=== PATIENT | male | born 1960 | race Hispanic/Latino ===

== ENCOUNTER 2020-03-22 05:33 | Emergency (ER) | payer MEDICAID ==
[~2020-03-22 05:33] MED LIST: JANUMET 50/500; LASIX PO
== END 2020-03-22 06:21 | disposition home or self-care (01) ==
LOC: EDH 05:33
DX: L03.012 Cellulitis of left finger (principal); E11.9 Type 2 diabetes mellitus without complications

== ENCOUNTER 2020-10-14 14:18 | Observation (INO) | payer MEDICAID ==
[~2020-10-14] VITALS: Ht 170.2 cm; Wt 141.2 kg
[2020-10-14 14:48] LABS: APPEARANCE,URINE Clear (CLEAR); BILIRUBIN,URINE Negative (NEGATIVE); COLOR,URINE Yellow (YELLOW); GLUCOSE, URINE (UA) Negative (NEGATIVE); KETONES,URINE Negative (NEGATIVE); LEUKOCYTE ESTERASE ,URINE Negative (NEGATIVE); NITRATE,URINE Negative (NEGATIVE); OCCULT BLOOD,URINE Negative (NEGATIVE); PROTEIN,URINE Negative (NEGATIVE); UROBILINOGEN,URINE 0.2 mg/dL (0.2-1.0)
[2020-10-14 14:56] LABS: AMPHET/METH SCREEN,URINE NEGATIVE (NEGATIVE); BARBITURATE SCREEN, URINE NEGATIVE (NEGATIVE); BENZODIAZEPINES SCREEN,URINE NEGATIVE (NEGATIVE); CANNABINOID SCREEN,URINE NEGATIVE (NEGATIVE); COCAINE SCREEN,URINE NEGATIVE (NEGATIVE); OPIATE SCREEN,URINE NEGATIVE (NEGATIVE); PHENCYCLIDINE SCREEN,URINE NEGATIVE (NEGATIVE)
[2020-10-14 15:10] LABS: BASOPHILS % (AUTO) 0.4 % (0.0-5.0); HEMATOCRIT 46.8 % (42-54); LYMPHOCYTES % (AUTO) 21.6 % (21.0-51.0); MEAN CORPUSCULAR HEMOGLOBIN 28.3 pg (27.0-33.0); MEAN CORPUSCULAR HGB CONC 33.1 g/dL (32.0-36.0); MEAN CORPUSCULAR VOLUME 85.6 fL (79-99); MONOCYTES % (AUTO) 9.2 % (3.0-13.0); NEUTROPHILS % (AUTO) 66.6 % (40.0-77.0); PLATELET COUNT (AUTO) 253 K/uL (130-400); RED BLOOD CELL COUNT(AUTO) 5.47 MIL/uL (4.50-6.20); RED CELL DISTRIBUTION WIDTH 12.9 % (11.0-15.5); WHITE BLOOD COUNT (AUTO) 9.2 K/uL (4.8-10.8)
[2020-10-14 15:23] LABS: CREATININE 0.8 mg/dL (0.5-1.5); POTASSIUM 4.2 mmol/L (3.5-5.1)
[2020-10-14 15:26] LABS: B-TYPE NATRIURETIC PEPTIDE 46 pg/mL (0-100)
[2020-10-14 15:28] LABS: ALBUMIN 3.6 g/dL (3.5-5.0); BILIRUBIN,TOTAL 0.4 mg/dL (0.2-1.0); TOTAL PROTEIN, SERUM 7.9 g/dL (6.0-8.3)
[2020-10-14 15:30] LABS: INR 1.04 (0.85-1.15); PROTHROMBIN TIME 11.1 SEC (9.6-11.6)
[2020-10-14 15:31] LABS: PARTIAL THROMBOPLASTIN TIME 26.6 SEC (26.3-35.5)
[2020-10-14] MEDS ORDERED: IOHEXOL-350 75 ML VIAL IV ONE ×2 (16:01→16:41)
[2020-10-14] MEDS ORDERED: LOPERAMIDE HCL 2 MG CAP PO PRN (16:45)
[2020-10-14] MEDS ORDERED: DOCUSATE SODIUM 100 MG CAP PO PRN (16:45)
[2020-10-14] MEDS ORDERED: HYDRALAZINE HCL 20 MG/ML VIAL IV PRN (16:45)
[2020-10-14] MEDS ORDERED: ONDANSETRON HCL 4 MG/2 ML VIAL IVP PRN (16:45)
[2020-10-14] MEDS ORDERED: ACETAMINOPHEN 325 MG TAB PO PRN (16:45)
[2020-10-14] MEDS ORDERED: MAGNESIUM 2GM PREMIX 50ML 50 ML IV PRN ×2 (16:45→17:00)
[2020-10-14] MEDS ORDERED: POTASSIUM CHLORIDE 10% ELIXIR 20 MEQ/15 ML UDCUP PO PRN (16:45)
[2020-10-14] MEDS ORDERED: GLUCAGON 1MG KIT 1 MG ML IM PRN (17:00)
[2020-10-14] MEDS ORDERED: LIDOCAINE HCL-MPF 1% 2ML VIAL IV PRN (17:00)
[2020-10-14] MEDS ORDERED: POTASSIUM CHLORIDE 20MEQ/100ML 100 ML IV PRN (17:00)
[2020-10-14] MEDS ORDERED: DEXTROSE 50%-WATER 50 ML DISP.SYRIN IV PRN (17:00)
[2020-10-14 20:25] VITALS: BP 131/90
[2020-10-14] MEDS: LACTATED RINGERS 1000ML 1,000 ML IV SCH (22:45)
[2020-10-15 01:09] VITALS: BP 131/88
[2020-10-15] MEDS: LACTATED RINGERS 1000ML 1,000 ML IV SCH ×3 (02:45→22:45)
[2020-10-15 04:03] VITALS: BP 123/80
[2020-10-15 04:03] LABS: BASOPHILS % (AUTO) 0.4 % (0.0-5.0); EOSINOPHILS % (AUTO) 2.2 % (0.0-8.0); LYMPHOCYTES % (AUTO) 23.9 % (21.0-51.0); MEAN CORPUSCULAR HEMOGLOBIN 27.3 pg (27.0-33.0); MEAN CORPUSCULAR HGB CONC 31.7 g/dL (32.0-36.0); MEAN CORPUSCULAR VOLUME 86.1 fL (79-99); NEUTROPHILS % (AUTO) 64.3 % (40.0-77.0); PLATELET COUNT (AUTO) 258 K/uL (130-400); RED BLOOD CELL COUNT(AUTO) 5.34 MIL/uL (4.50-6.20); WHITE BLOOD COUNT (AUTO) 9.3 K/uL (4.8-10.8)
[2020-10-15 04:47] LABS: ALBUMIN 3.4 g/dL (3.5-5.0); BILIRUBIN,DIRECT 0.1 mg/dL (0.0-0.3); BILIRUBIN,TOTAL 0.7 mg/dL (0.2-1.0); MAGNESIUM 3.2 mg/dL (1.80-2.40); PHOSPHORUS 4.4 mg/dL (2.5-4.9); THYROID STIMULATING HORMONE 2.44 uIU/mL (0.36-3.74); TOTAL PROTEIN, SERUM 7.5 g/dL (6.0-8.3)
[2020-10-15 08:00] VITALS: BP 117/75
[2020-10-15] MEDS ORDERED: FUROSEMIDE 10 MG/ML 4ML VIAL ONE (11:21)
[2020-10-15] MEDS: PANTOPRAZOLE SODIUM 40 MG TABLET.DR PO SCH (11:25)
[2020-10-15] MEDS: ASPIRIN 81MG TAB.CHEW PO SCH ×2 (11:26→11:30)
[2020-10-15] MEDS: FUROSEMIDE 10 MG/ML 4ML VIAL IV SCH ×2 (11:27→22:17)
[2020-10-15] MEDS: CLOPIDOGREL BISULFATE 75 MG TAB PO SCH (11:55)
[2020-10-15 11:56] LABS: CHOLESTEROL 159 mg/dL (<200); HDL CHOLESTEROL 35 mg/dL (29-71); LDL DIRECT 102 mg/dL (0-99); TRIGLYCERIDES 76 mg/dL (30-200)
[2020-10-15 12:00] VITALS: BP_SYST 110; BP_SYST 131; BP_DIAS 44; BP_DIAS 76
[2020-10-15] MEDS ORDERED: INSU100I21 SQ (12:07)
[2020-10-15] MEDS ORDERED: METF-446 PO (12:07)
[2020-10-15 16:00] VITALS: BP 128/78
[2020-10-15 20:00] VITALS: BP 116/80
[2020-10-15] MEDS ORDERED: ATORVASTATIN CALCIUM 40 MG TABLET PO SCH (21:00)
[2020-10-16 01:52] VITALS: BP 122/70
[2020-10-16 02:22] VITALS: BP 122/70
[2020-10-16] MEDS: FUROSEMIDE 10 MG/ML 4ML VIAL IV SCH (03:30)
[2020-10-16 04:39] VITALS: BP 134/82
[2020-10-16 07:30] VITALS: BP 136/80
[2020-10-16] MEDS: ASPIRIN 81MG TAB.CHEW PO SCH ×2 (09:00→11:05)
[2020-10-16] MEDS: PANTOPRAZOLE SODIUM 40 MG TABLET.DR PO SCH (11:04)
[2020-10-16] MEDS: CLOPIDOGREL BISULFATE 75 MG TAB PO SCH (11:04)
[2020-10-16] MEDS: LACTATED RINGERS 1000ML 1,000 ML IV SCH (11:05)
[2020-10-16 11:37] VITALS: BP 115/88
[2020-10-16 16:00] VITALS: BP 116/70
[2020-10-16] MEDS ORDERED: ASPI-1005 PO (16:44)
[2020-10-16] MEDS ORDERED: CLOP75TA14 PO (16:44)
[2020-10-16] MEDS ORDERED: ATOR40TA69 PO (16:44)
== END 2020-10-16 19:56 | disposition home or self-care (01) ==
LOC: EDH 14:18 → EDHIP 14:19 → 4CH 20:02
PROVIDERS: ADMIT Internal Medicine Critical Care Medicine; ATTEND Internal Medicine Critical Care Medicine
DX: G45.9 Transient cerebral ischemic attack, unspecified (principal); Z20.828 Contact with and (suspected) exposure to other viral communicable diseases; R42 Dizziness and giddiness; E83.41 Hypermagnesemia; E11.9 Type 2 diabetes mellitus without complications; I66.9 Occlusion and stenosis of unspecified cerebral artery; E66.01 Morbid (severe) obesity due to excess calories; I11.9 Hypertensive heart disease without heart failure; Z79.899 Other long term (current) drug therapy; Z68.43 Body mass index [BMI] 50.0-59.9, adult
CPT/HCPCS: 36415 ×2; 70450; 70496; 70498; 71045; 80053; 80061; 80076; 80305; 81003; 82550 ×2; 82948 ×9; 83735; 83880; 84100; 84443; 85025 ×2; 85610; 85730; 87426; 92507; 92522; 92610; 93005; 93306; 93356; 96361 ×3; 96374; 96376; 97161; 99285; G0378 ×50; G8978; G8979; G8980; G8981; G8982; G8983; J1940 ×2; J7120 ×3; Q9967 ×2; U0003

== ENCOUNTER 2020-11-21 15:06 | Emergency (ER) | payer MEDICAID, OTHER ==
[~2020-11-21 15:06] MED LIST changes: +ASPI-1005 PO; +ATOR40TA69 PO; +CLOP75TA14 PO; +INSU100I21 SQ; +METF-446 PO
[2020-11-21] MEDS ORDERED: ACETAMINOPHEN WITH CODEINE 1 TAB TAB ONE (15:27)
== END 2020-11-21 16:21 | disposition home or self-care (01) ==
LOC: EDH 15:06
DX: M25.511 Pain in right shoulder (principal); E11.9 Type 2 diabetes mellitus without complications; W10.8XXA Fall (on) (from) other stairs and steps, initial encounter; Y93.89 Activity, other specified; Y92.89 Other specified places as the place of occurrence of the external cause; Y99.8 Other external cause status
CPT/HCPCS: 73030

== ENCOUNTER 2021-02-08 11:44 | Observation (INO) | payer MEDICAID ==
[2021-02-08 12:26] LABS: BASOPHILS % (AUTO) 0.3 % (0.0-5.0); EOSINOPHILS % (AUTO) 1.6 % (0.0-8.0); HEMATOCRIT 49.7 % (42-54); LYMPHOCYTES % (AUTO) 22.8 % (21.0-51.0); MEAN CORPUSCULAR HEMOGLOBIN 27.3 pg (27.0-33.0); MEAN CORPUSCULAR HGB CONC 31.6 g/dL (32.0-36.0); MEAN CORPUSCULAR VOLUME 86.4 fL (79-99); MONOCYTES % (AUTO) 8.5 % (3.0-13.0); NEUTROPHILS % (AUTO) 66.5 % (40.0-77.0); PLATELET COUNT (AUTO) 264 K/uL (130-400); RED BLOOD CELL COUNT(AUTO) 5.75 MIL/uL (4.50-6.20); RED CELL DISTRIBUTION WIDTH 14.5 % (11.0-15.5); WHITE BLOOD COUNT (AUTO) 11.4 K/uL (4.8-10.8)
[2021-02-08] MEDS ORDERED: IOHEXOL-350 75 ML VIAL IV ONE (12:27)
[2021-02-08 12:39] LABS: CREATININE 0.8 mg/dL (0.5-1.5); POTASSIUM 4.1 mmol/L (3.5-5.1)
[2021-02-08 12:53] LABS: ALBUMIN 3.7 g/dL (3.5-5.0); BILIRUBIN,TOTAL 0.8 mg/dL (0.2-1.0); INR 1.08 (0.85-1.15); PROTHROMBIN TIME 11.7 SEC (9.6-11.6)
[2021-02-08 12:54] LABS: PARTIAL THROMBOPLASTIN TIME 28.7 SEC (26.3-35.5)
[2021-02-08 13:16] LABS: CREATINE KINASE, TOTAL 78 U/L (21-232); MYOGLOBIN 43 ng/mL (10-92); TROPONIN I < 0.04 ng/mL (0.00-0.06)
[2021-02-08] MEDS ORDERED: ACETAMINOPHEN EXTRA STRENGTH 500 MG TABLET ONE (15:56)
[2021-02-08] MEDS ORDERED: DEXTROSE 50%-WATER 50 ML DISP.SYRIN IV PRN (16:00)
[2021-02-08] MEDS ORDERED: LOPERAMIDE 1 MG/7.5 ML UDCUP PO PRN (16:00)
[2021-02-08] MEDS ORDERED: ACETAMINOPHEN 325 MG TAB PO PRN (16:00)
[2021-02-08] MEDS ORDERED: LACTULOSE 20 GM/30 ML UDCUP PO PRN (16:00)
[2021-02-08] MEDS ORDERED: GLUCAGON 1MG KIT 1 MG ML IM PRN (16:00)
[2021-02-08] MEDS ORDERED: MAGNESIUM 2GM PREMIX 50ML 50 ML IV PRN (16:00)
[2021-02-08] MEDS ORDERED: POTASSIUM CHLORIDE 20MEQ/100ML 100 ML IV PRN (16:00)
[2021-02-08] MEDS ORDERED: ONDANSETRON HCL 4 MG/2 ML VIAL IVP PRN (16:00)
[2021-02-08] MEDS ORDERED: LIDOCAINE HCL-MPF 1% 2ML VIAL IV PRN (16:00)
[2021-02-08] MEDS ORDERED: POTASSIUM CHLORIDE 10% ELIXIR 20 MEQ/15 ML UDCUP PO PRN (16:00)
[2021-02-08] MEDS ORDERED: POTASSIUM CHLORIDE 20 MEQ ERTAB PO PRN (16:00)
[2021-02-08] MEDS ORDERED: INSULIN HUMULIN R 100 UNIT/ML 3ML SQ SCH (16:30)
[2021-02-08] MEDS ORDERED: ATORVASTATIN CALCIUM 40 MG TABLET PO SCH (21:00)
[2021-02-08] MEDS ORDERED: FAMOTIDINE 20MG TAB 20 MG TAB PO SCH (21:00)
[2021-02-09] MEDS ORDERED: CLOPIDOGREL BISULFATE 75 MG TAB PO SCH (09:00)
[2021-02-09] MEDS ORDERED: ASPIRIN 81MG TAB.CHEW PO SCH (09:00)
[2021-02-09] MEDS ORDERED: HEPARIN SODIUM 5000UNIT/ML 1ML VIAL SQ SCH (09:00)
== END 2021-02-08 16:53 | disposition left against medical advice (07) ==
LOC: EDH 11:44 → EDHIP 11:45
PROVIDERS: ADMIT Internal Medicine Pulmonary Disease; ATTEND Internal Medicine Pulmonary Disease
DX: H49.01 Third [oculomotor] nerve palsy, right eye (principal); E11.9 Type 2 diabetes mellitus without complications; G51.0 Bell's palsy; Z86.718 Personal history of other venous thrombosis and embolism
CPT/HCPCS: 36415; 70450; 70496; 70498; 70551; 80053; 82550; 83874; 84484; 85025; 85610; 85651; 85730; 86140; 93005; 99285; G0378; Q9967